=== PATIENT | male | born 1970 ===

== ENCOUNTER 2023-03-17 09:43 | Emergency (ER) | payer MEDICAID, SELFPAY ==
[2023-03-17 09:50] VITALS: BP 107/71; PULSE 113; RESP 18; O2SAT 95
--- NOTE | 2023-03-17 09:55 | ED_ITS ---
HPI - General Adult General Time Seen by Provider: 09:55 Date Seen: 03/17/23 Chief complaint: GI Bleed Stated complaint: Vomiting blood Time Seen by Provider: 03/17/23 09:49 Source: patient Mode of arrival: EMS Limitations: physical limitation History of Present Illness HPI narrative: Patient is a 52-year-old male with known esophageal varices he has had these banded in the past. He started vomiting about 4 in the morning he has vomited a great amount of blood. Since he has been in the ambulance and arrived here he has got probably a L of blood that he has vomited. He has some lightheadedness, no chest pain, no shortness of breath, he continues to drink. He has had no other recent illnesses. His systolic blood pressure still in the 120s pulses elevated about 100-110. Review of Systems Status of ROS: Reports: 6 or more systems reviewed and unremarkable except as noted in History and below Exam Narrative: Exam Narrative: Objective: Primary survey is unremarkable for airway breathing circulation disability Secondary survey the patient is alert orient x3, responds to questions, has some bright red blood in his mouth. It is somewhat clotted. He has got a bag full of blood that he has no vomit bag that he has produced. Neck is supple Chest is clear Heart rhythm regular no murmur Abdomen benign soft nontender Extremities good perfusion neurologic nonfocal. Const: Vital Signs, click to edit/add: Vital Signs - 24 hr 03/17/23 09:56 Temperature 98.4 F Pulse Rate [Right Pulse Oximeter] 122 H Respiratory Rate 16 Blood Pressure [Le ft Upper Arm] 126/87 Pulse Oximetry 94 Oxygen Delivery Me thod Room Air Course Vital Signs Vital signs: Initial Vital Signs Temperature 98.4 F 03/17/23 09:56 Temperature Source Temporal Artery Scan 03/17/23 09:56 Pulse Rate 122 H 03/17/23 09:56 Pulse Rhythm Regular 03/17/23 09:56 Respiratory Rate 16 03/17/23 09:56 Blood Pressure 126/87 03/17/23 09:56 Blood Pressure Mean 100 03/17/23 09:56 Blood Pressure Position Sitting 03/17/23 09:56 Pulse Oximetry 94 03/17/23 09:56 Oxygen Delivery Method Room Air 03/17/23 09:56 Vital Signs Temperature 98.4 F 03/17/23 09:56 Pulse Rate 122 H 03/17/23 09:56 Respiratory Rate 16 03/17/23 09:56 Blood Pressure 126/87 03/17/23 09:56 Pulse Oximetry 94 03/17/23 09:56 Oxygen Delivery Method Room Air 03/17/23 09:56 Temperature 98.4 F 03/17/23 09:56 Pulse Rate 122 H 03/17/23 09:56 Respiratory Rate 16 03/17/23 09:56 Blood Pressure 126/87 03/17/23 09:56 Pulse Oximetry 94 03/17/23 09:56 Oxygen Delivery Method Room Air 03/17/23 09:56 Medical Decision Making MDM Narrative Medical decision making narrative: [age] year white male with a history of alcohol intake and esophageal varices status post banding. Patient now has an acute upper GI hemorrhage. Patient needs emergent transfer for care. I am trying to call different hospitals and want to make a transfer right now, but no up this point there is no accepting facilities. Will start O negative blood, IV fluid, 2 IVs, laboratory studies will be done, patient will get octreotide as well as Protonix. Will continue trying contact tertiary care. Addendum 10:07 a.m.: [facility] has accepted the patient Dr. Fleming in the ER, we will also try make him a direct admission to the ICU. Will start O negative blood now, no time to type and screen him, his systolic blood pressures in the 100-120 range, and his pulse is in the 110-120 range now. He needs IV hydration IV blood, he needs octreotide which is started he needs Protonix, and we are sending him eating all that we are sending him with ambulance ground as they are here and will be shorter time then air by the time air would get here and leave. Patient was comfortable this plan. Given the patient's critical condition with GI blood loss, he was transferred emergently via ground ambulance. Again it was felt that that was faster than air at this time. He has 2 units of blood O negative started, he has 3 IVs, his hemodynamics still show a blood pressure of 119. Patient was accepted by [facility] and will contact the ICU to see if it could be a direct admission to the ICU as well, but they wanted transfer to occur now. Octreotide and Protonix given as well Addendum 10:25 a.m.. Discussed with [facility] hospitalist , who kindly accepted the patient to the ICU, no specific bed placement yet but they will be notified when they arrive regarding placement. Lab Data Labs: Lab Results 03/17/23 Range/Units 09:49 WBC 7.99 (4.50-11.00) K/uL RBC 3.36 L (4.30-5.90) m/uL Hgb 10.6 L (13.5-17.5) gm/dL Hct 31.9 L (37.0-53.0) % MCV 95 (80-100) fL MCH 32 (26-34) pg MCHC 33 (32-36) gm/dL RDW Coeff of Ruben 18.9 H (11.5-15.5) % Plt Count 134 L (140-440) K/uL Neut % (Auto) 48.2 (42.0-72.0) % Lymph % (Auto) 37.9 (20-44) % Spink % (Auto) 7.6 (0.0-11.0) % Eos % (Auto) 4.5 (0.0-7.0) % Baso % (Auto) 1.4 (0.0-3.0) % Neut # (Auto) 3.85 (1.7-7.0) K/uL Lymph # (Auto) 3.03 H (0.90-2.90) K/uL Spink # (Auto) 0.60 (0.00-0.90) K/UL Eos # (Auto) 0.36 (0.00-0.50) K/uL Baso # (Auto) 0.11 (0.00-0.30) K/uL Abs Immat Gran (auto) 0.03 (0.00-0.30) K/uL Imm/Tot Granulo (auto) 0.4 % Critical Care Time Critical Care Time Critical Care Time: Yes Attestation: The patient required my highest level preparedness to intervene emergently and I personally spent this critical care time directly and personally managing the patient. This critical care time included: Obtaining a history; Examining the patient; Pulse oximetry; Ordering and reviewing of studies; Arranging urgent treatment with development of a management plan; Evaluation of patients response to treatment; Frequent reassessment discussions with other providers. This critical care time was performed to assess and manage the high probability of imminent life-threatening deterioration that could result in multiorgan failure. It was exclusive of separate billable procedures and treating other patients and teaching time. Total Critical Care Time in Minutes: 45 Discharge Plan Discharge Clinical Impression: Upper gastrointestinal hemorrhage Patient Disposition: Xfer Other Condition: Critical Additional Instructions: Transfer to tertiary care for further definitive treatment Stand Alone Forms: [facility] Info Instructions
[2023-03-17 09:56] VITALS: BP 126/87; PULSE 122; RESP 16; TEMP 36.9; O2SAT 94; BMI 22.5
[2023-03-17 10:00] VITALS: BP 99/70; RESP 110; O2SAT 14; O2SAT 94
[2023-03-17] MEDS: 0.9 % SODIUM CHLORIDE 1000 ml 1,000 ML 6000 ML IV (10:03)
[2023-03-17] MEDS: ONDANSETRON 2 MG/ML inj 4 MG IVP (10:03)
[2023-03-17] MEDS: PANTOPRAZOLE SODIUM 40 MG INJ IVP (10:05)
[2023-03-17 10:10] LABS: Basophils Absolute Auto 0.11 K/uL (0.00-0.30); Basophils Percent Auto 1.4 % (0.0-3.0); Eosinophils Absolute Auto 0.36 K/uL (0.00-0.50); Eosinophils Percent Auto 4.5 % (0.0-7.0); Hematocrit 31.9 % (37.0-53.0); Hemoglobin* 10.6 gm/dL (13.5-17.5); Immature Granulocytes Abs Auto 0.03 K/uL (0.00-0.30); Immature Granulocytes Pct Auto 0.4 %; Lymphocytes Absolute Auto 3.03 K/uL (0.90-2.90); Lymphocytes Percent Auto 37.9 % (20-44); Mean Corpuscular HGB Conc 33 gm/dL (32-36); Mean Corpuscular Hemoglobin 32 pg (26-34); Mean Corpuscular Volume 95 fL (80-100); Monocytes Percent Auto 7.6 % (0.0-11.0); Neutrophils Absolute Auto 3.85 K/uL (1.7-7.0); Neutrophils Percent Auto 48.2 % (42.0-72.0); Platelet Count* 134 K/uL (140-440); RDW Coefficient of Variation % 18.9 % (11.5-15.5); Red Blood Count 3.36 m/uL (4.30-5.90); White Blood Count* 7.99 K/uL (4.50-11.00)
[2023-03-17 10:16] LABS: Albumin* 3.4 g/dL (3.3-5.0)
[2023-03-17 10:17] LABS: Chloride* 107 mmol/L (96-114); Potassium* 3.4 mmol/L (3.6-5.1); Sodium* 141 mmol/L (135-149)
[2023-03-17] MEDS: 0.9 % SODIUM CHLORIDE 250 ml IV (10:17)
[2023-03-17 10:19] LABS: Anion Gap 11 mEq/L (7-15); Aspartate Amino Transferase* 78 U/L (12-35); Bilirubin Direct* 0.6 mg/dL (0.0-0.5); Bilirubin Total* 2.1 mg/dL (0.1-1.5); Blood Urea Nitrogen* 10 mg/dL (7-30); Carbon Dioxide* 23 mmol/L (20-32); Creatinine* 0.6 mg/dL (0.5-1.5); Estimated Glomerular Filt Rate 118 ml/min; Total Protein* 7.4 g/dL (6.0-8.3)
[2023-03-17 10:20] LABS: Alanine Aminotransferase* 25 U/L (4-50); Alkaline Phosphatase* 159 U/L (40-150); Calcium* 8.3 mg/dL (8.4-10.6); Ethanol* 0.18 % (0.01-0.03); Glucose* 106 mg/dL (60-115)
--- NOTE | 2023-03-17 10:21 | ED.NURSE ---
Bettina Denise contacted regarding patient being transferred to [facility].
[2023-03-17 10:24] LABS: Slide Review Reflex No
[2023-03-17 10:28] LABS: Lactate* 4.2 mmol/L (0.5-1.9)
[2023-03-17 10:33] LABS: INR 1.62 (0.91-1.10); Prothrombin Time 20.1 Seconds
[2023-03-17 10:34] LABS: Partial Thromboplastin Time* 39 Seconds (23-33)
--- NOTE | 2023-03-17 10:40 | PC.NURSE ---
report given to ICU at [facility], pt en route at this time
== END 2023-03-17 11:16 | disposition other institution (70) ==
PROVIDERS: Emergency Provider Family Medicine
DX: K92.2 Gastrointestinal hemorrhage, unspecified (principal)
CPT/HCPCS: 36415; 36430; 80048; 80076; 82077; 83605; 85025; 85610; 85730; 86850; 86900; 86901; 86922; 94761; 96374; 96375; 99285; 99291; C9113; J2354; J2405; J7030; J7050; P9016

== ENCOUNTER 2023-03-17 10:15 | Outpatient (CLI) | payer MEDICAID, SELFPAY | END 2023-03-17 10:16 | disposition home or self-care (01) | LOC: AMB 03-23 13:28 | PROVIDERS: Visit Provider Student in an Organized Health Care Education/Training Program | DX: K92.2 Gastrointestinal hemorrhage, unspecified (principal) | CPT/HCPCS: A0425; A0427 ==